=== PATIENT | male | born 1990 | race Caucasian/White ===

== ENCOUNTER 2023-02-20 08:17 | Emergency (ER) | payer BC ==
[2023-02-20] MEDS ORDERED: HYDROCODONE/APAP 10/325 TAB ONE (08:44)
--- NOTE | 2023-02-20 09:08 | RAD REPORT ---
EXAM DESCRIPTION: RAD - Wrist Right 3 View - 02/20/2023 8:40 am CLINICAL HISTORY: Right wrist pain status post injury FINDINGS: Moderately displaced fracture involves the base of the fourth metacarpal. Small bony density adjacent to the base of the fifth metacarpal probably an avulsion fracture. Base of the fifth metacarpal is dislocated
--- NOTE | 2023-02-20 09:09 | RAD REPORT ---
EXAM DESCRIPTION: RAD - Hand Right 3 View - 02/20/2023 8:40 am CLINICAL HISTORY: Right hand pain status post injury FINDINGS: Moderately displaced fracture involves the base of the fourth metacarpal. Small bony density adjacent to the base of the fifth metacarpal probably an avulsion fracture. Base of the fifth metacarpal is dislocated
[2023-02-20] MEDS ORDERED: ETOMIDATE 20 MG/10 ML VIAL IV ONE (09:45)
[2023-02-20] MEDS ORDERED: MIDAZOLAM HCL 5 ML ONE (09:45)
[2023-02-20] MEDS ORDERED: ONDANSETRON 4 MG/2 ML VIAL ONE (09:46)
[2023-02-20] MEDS ORDERED: NA CHLORIDE 0.9% 1,000 ML ONE (09:57)
--- NOTE | 2023-02-20 10:39 | RAD REPORT ---
EXAM DESCRIPTION: RAD - Hand Right 3 View - 02/20/2023 10:13 am CLINICAL HISTORY: Right hand pain FINDINGS: Previous described dislocation fifth metacarpal does not appear to be completely reduced Fractures base of the fourth and fifth metacarpals
--- NOTE | 2023-02-20 10:49 | ER ---
Nurse's Notes [facility] Name: Cale Ramos Age: 32 yrs Sex: Male : 1990 Arrival Date: 02/20/2023 Time: 08:17 Bed 17 Private MD: Diagnosis: Displaced fracture of base of fourth metacarpal bone, right hand, initial encounter for closed fracture;Dislocation of base of right fifth metacarpal Presentation: 02/20 08:36 Chief complaint: Patient states: Pain to right hand. Coronavirus screen: At this time, ld1 the client does not indicate any symptoms associated with coronavirus-19. Ebola Screen: No symptoms or risks identified at this time. Initial Sepsis Screen: Does the patient meet any 2 criteria? No. Patient's initial sepsis screen is negative. Does the patient have a suspected source of infection? No. Patient's initial sepsis screen is negative. Risk Assessment: Do you want to hurt yourself or someone else? Patient reports no desire to harm self or others. Onset of symptoms was February 20, 2023 at 08:37. 08:36 Method Of Arrival: Ambulatory ld1 08:36 Acuity: SONAL 4 ld1 Triage Assessment: 08:37 General: Appears in no apparent distress. comfortable, Behavior is calm, cooperative, ld1 appropriate for age. Pain: Complains of pain in right hand Pain does not radiate. Pain currently is 9 out of 10 on a pain scale. Quality of pain is described as throbbing, Pain began 1 day ago. Is continuous. EENT: No deficits noted. Neuro: Level of Consciousness is awake, alert, obeys commands, Oriented to person, place. Cardiovascular: Capillary refill < 3 seconds Patient's skin is warm and dry. Respiratory: Airway is patent Respiratory effort is even, unlabored. GI: Abdomen is round non-distended. : No signs and/or symptoms were reported regarding the genitourinary system. Derm: No signs and/or symptoms reported regarding the dermatologic system. Musculoskeletal: Reports pain in right hand. 11:03 Injury Description: dislocation and fracture to right hand. tm6 Historical: - Allergies: 08:37 No Known Allergies; ld1 - Home Meds: 08:37 None [Active]; ld1 - PMHx: 08:37 None; ld1 - PSHx: 08:37 None; ld1 - Immunization history:: Adult Immunizations not up to date. - Social history:: Smoking status: Patient reports the use of cigarette tobacco products, smokes one-half pack cigarettes per day. Screenin:38 [facility] ED Fall Risk Assessment (Adult) History of falling in the last 3 months, ld1 including since admission No falls in past 3 months (0 pts). Abuse screen: Denies threats or abuse. Denies injuries from another. Nutritional screening: No deficits noted. Tuberculosis screening: No symptoms or risk factors identified. Assessment: 08:38 Reassessment: See triage assessment. ld1 09:41 Reassessment: Patient appears in no apparent distress at this time. No changes from ld1 previously documented assessment. Patient and/or family updated on plan of care and expected duration. Pain level reassessed. Patient is alert, oriented x 3, equal unlabored respirations, skin warm/dry/pink. ERP at bedside. Pt signed conscious sedation paperwork, IV in placed, suction at bedside, pt on monitor. Pt denies concerns at this time. 10:09 Reassessment: Conscious sedation performed at 0950 - reduction complete at 1000. No ld1 signs of distress. Neuro: Haley Agitation-Sedation Scale (RASS): -1 Drowsy. Respiratory: Airway is patent Respiratory effort is even, unlabored. 10:24 General: Appears in no apparent distress. Behavior is calm, cooperative. Neuro: tm6 Haley Agitation-Sedation Scale (RASS): -1 Drowsy. Respiratory: Airway is patent Respiratory effort is even, unlabored, Respiratory pattern is regular, symmetrical. 10:40 Neuro: Haley Agitation-Sedation Scale (RASS): -1 Drowsy. tm6 10:53 Neuro: Haley Agitation-Sedation Scale (RASS): 0 - Alert and Calm Level of tm6 Consciousness is awake, alert, obeys commands, Oriented to person, place, time, situation. Vital Signs: 08:29 Weight 99.79 kg; ld1 08:36 BP 153 / 91; Pulse 93; Resp 18; Temp 98.2(TE); Pulse Ox 97% on R/A; Height 5 ft. 10 in. ld1 ; Pain 9/10; 09:41 BP 149 / 87; Pulse 82; Resp 18; Pulse Ox 98% on R/A; Pain 9/10; ld1 09:50 BP 148 / 88; Pulse 89; Resp 18; Pulse Ox 95% on 2 lpm NC; ld1 09:54 BP 153 / 97; Pulse 101; Resp 18; Pulse Ox 99% on 3 lpm NC; ld1 09:56 BP 159 / 96; Pulse 103; Resp 18; Pulse Ox 100% on 3 lpm NC; ld1 09:58 BP 133 / 91; Pulse 89; Resp 18; Pulse Ox 97% on 3 lpm NC; ld1 10:00 BP 137 / 92; Pulse 85; Resp 18; Pulse Ox 100% on 3 lpm NC; ld1 10:02 BP 155 / 94; Pulse 80; Resp 18; Pulse Ox 100% on 3 lpm NC; ld1 10:25 BP 149 / 87; Pulse 79; Resp 17; Pulse Ox 100% on NC; FiO2 3 %; tm6 10:40 BP 159 / 101; Pulse 70; Resp 15; Pulse Ox 100% ; tm6 08:36 Pain Scale: Adult ld1 09:41 Pain Scale: Adult ld1 ED Course: 08:18 Patient arrived in ED. rg4 08:18 Dottie Ponce FNP [facility]. jh7 08:18 Russell Varma MD is Attending Physician. jh7 08:29 Kimberly Garzon, JELENA is Primary Nurse. tm6 08:37 Triage completed. ld1 08:37 Arm band placed on right wrist. ld1 08:38 Patient has correct armband on for positive identification. Bed in low position. Call ld1 light in reach. Side rails up X2. water safety teacher on. Pulse ox on. NIBP on. Door closed. Noise minimized. Warm blanket given. 08:38 No provider procedures requiring assistance completed. ld1 08:42 XRAY Hand RIGHT 3 View In Process Unspecified. EDMS 08:42 XRAY Wrist RIGHT 3 view In Process Unspecified. EDMS 09:41 Inserted saline lock: 20 gauge in left antecubital area, using aseptic technique. ld1 10:14 XRAY Hand RIGHT 3 View In Process Unspecified. EDMS 10:48 Kyle Lala MD is Referral Physician. jh7 11:02 IV discontinued, intact, bleeding controlled, No redness/swelling at site. Pressure tm6 dressing applied. 11:03 Provided Education on: prescription and follow up. tm6 Administered Medications: 08:39 Drug: [place] PO 10 mg-325 mg 1 tabs PO once Route: PO; ld1 09:42 Drug: Ondansetron IVP 4 mg IVP once; over 2 minutes Route: IVP; Site: left antecubital; ld1 10:05 Follow up: Response: No adverse reaction ld1 09:43 Drug: NS 0.9% IV 1000 ml IV at 1 bolus Per protocol; 1000 mL bolus Route: IV; Rate: 1 ld1 bolus; Site: left antecubital; 11:04 Follow up: Response: No adverse reaction; IV Intake: 1000ml tm6 09:54 Drug: Midazolam IVP or IV 5 mg IVP once; at bedside {Note: 4 mg Versed IVP.} Route: ld1 IVP; Site: left antecubital; 10:05 Follow up: Response: No adverse reaction ld1 09:57 Drug: Etomidate IVP 10 mg IVP once; at bedside {Note: Dr. Varma at bedside. Verbal ld1 order of 17mg.} Route: IVP; Site: left antecubital; 10:05 Follow up: Response: No adverse reaction ld1 Medication: 08:38 VIS not applicable for this client. ld1 Intake: 11:04 IV: 1000ml; Total: 1000ml. tm6 Outcome: 10:49 Discharge ordered by . 7 11:02 Discharged to home ambulatory, tm6 11:02 Condition: stable 11:02 Discharge instructions given to patient, Instructed on discharge instructions, follow up and referral plans. medication usage, Demonstrated understanding of instructions, follow-up care, medications, Prescriptions given X 1, 11:04 Patient left the ED. tm6 Signatures: Dispatcher [employer] EDMS Ella Donovan rg4 Alyssa Jolley, RN RN ld1 Dottie Ponce, INSTRUCTIONAL PARAPROFESSIONAL INSTRUCTIONAL PARAPROFESSIONAL jh7 Kimberly Garzon RN RN tm6 Corrections: (The following items were deleted from the chart) 10:01 10:01 Midazolam IVP or IV 5 mg IVP in left antecubital; 4 mg Versed IVP ld1 ld1 10:05 09:51 Etomidate IVP 17 mg IVP in left antecubital; Dr. Varma at bedside. Verbal ld1 order of 17mg ld1
--- NOTE | 2023-02-20 10:50 | EDPHYS ---
Physician Documentation [facility] Name: Cale Ramos Age: 32 yrs Sex: Male : 1990 Arrival Date: 02/20/2023 Time: 08:17 Bed 17 Private MD: NGUYEN Physician Russell Varma HPI: 02/20 08:18 This 32 yrs old Male presents to ER via Unassigned with complaints of Hand Injury. jh7 08:18 The patient or guardian reports decreased range of motion, pain, swelling. The jh7 complaints affect the right hand diffusely. Context: The problem was sustained at a bar/nightclub, resulted from an unknown cause. Onset: The symptoms/episode began/occurred last night. Associated signs and symptoms: Pertinent negatives: cyanosis distally, decreased sensation distally, fever, numbness distally, tingling distally. 32-year-old male presents to the ER for right hand/wrist injury. He reports that he was out drinking last night and somehow injured his hand. Diffuse swelling of the right hand with decreased range of motion of the right wrist. NKDA, no past medical history.. Historical: - Allergies: 08:37 No Known Allergies; ld1 - Home Meds: 08:37 None [Active]; ld1 - PMHx: 08:37 None; ld1 - PSHx: 08:37 None; ld1 - Immunization history:: Adult Immunizations not up to date. - Social history:: Smoking status: Patient reports the use of cigarette tobacco products, smokes one-half pack cigarettes per day. ROS: 08:18 Constitutional: Negative for fever, chills, and weight loss, Eyes: Negative for injury, jh7 pain, redness, and discharge, Neck: Negative for injury, pain, and swelling, Cardiovascular: Negative for chest pain, palpitations, and edema, Respiratory: Negative for shortness of breath, cough, wheezing, and pleuritic chest pain, Abdomen/GI: Negative for abdominal pain, nausea, vomiting, diarrhea, and constipation, Skin: Negative for injury, rash, and discoloration, Neuro: Negative for headache, weakness, numbness, tingling, and seizure, 08:18 MS/extremity: Positive for injury or acute deformity, decreased range of motion, pain, swelling, tenderness, of the right hand, 08:18 All other systems are negative, Exam: 08:18 Constitutional: This is a well developed, well nourished patient who is awake, alert, jh7 and in no acute distress. Head/Face: Normocephalic, atraumatic. Neck: Trachea midline, no thyromegaly or masses palpated, and no cervical lymphadenopathy. Supple, full range of motion without nuchal rigidity, or vertebral point tenderness. No Meningismus. Cardiovascular: Regular rate and rhythm with a normal S1 and S2. No gallops, murmurs, or rubs. Normal PMI, no JVD. No pulse deficits. Respiratory: Lungs have equal breath sounds bilaterally, clear to auscultation and percussion. No rales, rhonchi or wheezes noted. No increased work of breathing, no retractions or nasal flaring. Abdomen/GI: Soft, non-tender, with normal bowel sounds. No distension or tympany. No guarding or rebound. No evidence of tenderness throughout. Back: No spinal tenderness. No costovertebral tenderness. Full range of motion. Skin: Warm, dry with normal turgor. Normal color with no rashes, no lesions, and no evidence of cellulitis. Neuro: Awake and alert, GCS 15, oriented to person, place, time, and situation. Motor strength 5/5 in all extremities. Sensory grossly intact. Normal gait. 08:18 Musculoskeletal/extremity: Extremities: noted in the R hand: decreased ROM, ecchymosis, pain, swelling, tenderness, ROM: limited active range of motion, in the right hand and wrist, limited active range of motion due to pain, in the right hand and wrist, Circulation is intact in all extremities. Pulses: are normal with no appreciated deficits, Perfusion: the extremity is normally perfused throughout, pink, warm, with brisk capillary refill, Sensation intact. Vital Signs: 08:29 Weight 99.79 kg; ld1 08:36 BP 153 / 91; Pulse 93; Resp 18; Temp 98.2(TE); Pulse Ox 97% on R/A; Height 5 ft. 10 in. ld1 ; Pain 9/10; 09:41 BP 149 / 87; Pulse 82; Resp 18; Pulse Ox 98% on R/A; Pain 9/10; ld1 09:50 BP 148 / 88; Pulse 89; Resp 18; Pulse Ox 95% on 2 lpm NC; ld1 09:54 BP 153 / 97; Pulse 101; Resp 18; Pulse Ox 99% on 3 lpm NC; ld1 09:56 BP 159 / 96; Pulse 103; Resp 18; Pulse Ox 100% on 3 lpm NC; ld1 09:58 BP 133 / 91; Pulse 89; Resp 18; Pulse Ox 97% on 3 lpm NC; ld1 10:00 BP 137 / 92; Pulse 85; Resp 18; Pulse Ox 100% on 3 lpm NC; ld1 10:02 BP 155 / 94; Pulse 80; Resp 18; Pulse Ox 100% on 3 lpm NC; ld1 10:25 BP 149 / 87; Pulse 79; Resp 17; Pulse Ox 100% on NC; FiO2 3 %; tm6 10:40 BP 159 / 101; Pulse 70; Resp 15; Pulse Ox 100% ; tm6 08:36 Pain Scale: Adult ld1 09:41 Pain Scale: Adult ld1 Procedures: 09:55 Moderate sedation: Pre-procedure assessment: the patient has been NPO 20 hour(s) prior [facility] to arrival, ASA physical classification: I - healthy, no underlying organic disease, Airway assessment: able to hyperextend neck, able to maintain airway, can open mouth without difficulty, Mallampati classification of tongue size: I - faucial pillars, soft palate, and uvula can be fully visualized, Monitoring during procedure: quality assurance monitor body, continuous pulse oximetry, nurse at bedside at all times, Medications employed: Etomidate, 17 mg(s), Versed, 4 mg(s), ED attending physician Dr. Varma at bedside.. 09:55 Reduction: of the right hand, using manipulation, Immobilized with ulnar gutter splint. jh7 Patient tolerated well. Post reduction film - reveals improved alignment. 09:57 Splinting: Splint applied to right hand using Orthoglass splint, applied by tech. post jh7 reduction film - reveals improved alignment, Examined by me, post splint application: neurovascular intact, 2+ distal pulses palpable, brisk capillary refill noted, Patient tolerated well. 10:06 Moderate sedation: Post-procedure assessment: the patient is mildly sedated, Armando jh7 sedation score: 2 - patient cooperative, oriented, and tranquil, Respiratory status: even and unlabored, a reversal agent was not used. MDM: 08:18 Patient medically screened. jh7 10:48 Differential diagnosis: dislocation, closed fracture, contusion. Data reviewed: vital [facility] signs, nurses notes, radiologic studies, plain films. I considered the following discharge prescriptions or medication management in the emergency department Medications were administered in the Emergency Department. See MAR. Counseling: I had a detailed discussion with the patient and/or guardian regarding the historical points, exam findings, and any diagnostic results supporting the discharge/admit diagnosis, the need for outpatient follow up, a hand specialist, to return to the emergency department if symptoms worsen or persist or if there are any questions or concerns that arise at home. Response to treatment: the patient's symptoms have markedly improved after treatment. 02/20 08:22 Order name: XRAY Hand RIGHT 3 View; Complete Time: 09:10 [facility] 02/20 08:22 Order name: XRAY Wrist RIGHT 3 view; Complete Time: 09:10 [facility] 02/20 10:06 Order name: XRAY Hand RIGHT 3 View; Complete Time: 10:45 [facility] 02/20 09:28 Order name: Moderate Sedation; Complete Time: 10:02 [facility] 02/20 09:28 Order name: Ulnar Gutter splint; Complete Time: 10:02 [facility] 02/20 09:29 Order name: Sling; Complete Time: 10:02 [facility] 02/20 09:31 Order name: IV Start; Complete Time: 09:42 [facility] Administered Medications: 08:39 Drug: [place] PO 10 mg-325 mg 1 tabs PO once Route: PO; ld1 09:42 Drug: Ondansetron IVP 4 mg IVP once; over 2 minutes Route: IVP; Site: left antecubital; ld1 10:05 Follow up: Response: No adverse reaction ld1 09:43 Drug: NS 0.9% IV 1000 ml IV at 1 bolus Per protocol; 1000 mL bolus Route: IV; Rate: 1 ld1 bolus; Site: left antecubital; 11:04 Follow up: Response: No adverse reaction; IV Intake: 1000ml tm6 09:54 Drug: Midazolam IVP or IV 5 mg IVP once; at bedside {Note: 4 mg Versed IVP.} Route: ld1 IVP; Site: left antecubital; 10:05 Follow up: Response: No adverse reaction ld1 09:57 Drug: Etomidate IVP 10 mg IVP once; at bedside {Note: Dr. Varma at bedside. Verbal ld1 order of 17mg.} Route: IVP; Site: left antecubital; 10:05 Follow up: Response: No adverse reaction ld1 Disposition Summary: 02/20/23 10:49 Discharge Ordered Notes: Location: Home [facility] Problem: new [facility] Symptoms: have improved [facility] Condition: Stable [facility] Diagnosis - Displaced fracture of base of fourth metacarpal bone, right hand, initial encounter [facility] for closed fracture - Dislocation of base of right fifth metacarpal [facility] Followup: [facility] - With: Kyle Lala MD - When: 2 - 3 days - Reason: Recheck today's complaints Discharge Instructions: - Discharge Summary Sheet [facility] - Cast or Splint Care, Adult [facility] - Metacarpal Fracture [facility] Forms: - Medication Reconciliation Form [facility] - Thank You Letter [facility] - Patient Portal Instructions [facility] - Leadership Thank You Letter [facility] Prescriptions: - Naprosyn 500 mg Oral Tablet - take 1 tablet ORAL route 2 times per day take with food; 30 tablet; Refills: 0, [facility] Product Selection Permitted Signatures: Dispatcher [employer] EDMS Alyssa Jolley RN RN ld1 Dottie Ponce FNP ASSET ACCOUNTANT 7 Kimberly Garzon RN tm6 Corrections: (The following items were deleted from the chart) 10:16 09:55 Moderate sedation: Pre-procedure assessment: the patient has been NPO 20 hour(s) [facility] prior to arrival, ASA physical classification: I - healthy, no underlying organic disease, Airway assessment: able to hyperextend neck, able to maintain airway, can open mouth without difficulty, Mallampati classification of tongue size: I - faucial pillars, soft palate, and uvula can be fully visualized, Monitoring during procedure: quality assurance monitor body, continuous pulse oximetry, nurse at bedside at all times, Medications employed: Etomidate, 17 mg(s), Versed, 4 mg(s), [facility]
[2023-02-20 11:15] VITALS: TEMP 98.2
[2023-02-20 11:37] VITALS: O2SAT 100
[2023-02-20 11:40] VITALS: BP 159/101
== END 2023-02-20 11:04 | disposition home or self-care (01) ==
LOC: ER 08:17
PROC: 0PSP35Z Reposition Right Metacarpal with External Fixation Device, Percutaneous Approach (ICD-10-PCS; principal; 2023-02-20)
DX: S62.314A Displaced fracture of base of fourth metacarpal bone, right hand, initial encounter for closed fracture (principal); S63.064A Dislocation of metacarpal (bone), proximal end of right hand, initial encounter; F17.210 Nicotine dependence, cigarettes, uncomplicated
CPT/HCPCS: 73130 ×2; 73110; 96375; 96374; 99285; 26605; J2250; J2405; J7030